=== PATIENT | male | born 1970 | race Caucasian/White ===

== ENCOUNTER → 2019-06-20 15:39 | Outpatient (CLI) | payer OTHER, SELFPAY ==
--- NOTE | ~2019-06-20 | CT_ITS ---
EXAMINATION: CT abdomen pelvis wo/w con DATE: 06/20/2019 16:41 INDICATION: Gross hematuria TECHNIQUE: Computed tomography (CT) of the abdomen and pelvis was performed without and subsequently with 130 cc Omnipaque 350 intravenous contrast. Automated exposure control and iterative reconstructi on technique were employed. Exam dose: 2355.12 mGy-cm total exam DLP. COMPARISON: None. FINDINGS: The lung bases are clear. Normal heart size. Trace pericardial fluid. No pleural effusion. Nonobstructing approximately 4.5 mm upper pole left renal calculus. Approximately 4 mm nonobstructing lower pole right renal calculus. No apparent ureteral calculus is noted but the distal ureters and urinary bladder are partially obscu red by extensive streak artifact from bilateral hip prostheses. No hepatic, splenic, pancreatic, adrenal space-occupying mass lesion is evident. The gallbladder is p resent. No bile duct or pancreatic duct dilatation. There are approximately 7 and 8 mm hypo- or nonenhancing lesions of the mid right kidney laterally an d medially, respectively. There is a 9 x 13 mm hypoenhancing or nonenhancing lesion of the lower right kidney anterolaterally. No left renal space occupying mass lesion is evident. No filling defect of the renal collecting syste ms or ureters is evident. No obvious urinary bladder mass lesion is evident, but as mentioned, there is nonvisualization of a p ortion of the urinary bladder due to the extensive streak artifact from the hip prostheses. Normal caliber of the abdominal aorta. No intraperitoneal or retroperitoneal or pelvic mass lesion or adenopathy or ascites is evident. There is diverticulosis of the left colon; no CT evidence of diverticulitis. Normal appendix. No mickey l obstruction or intraperitoneal free air. 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 IMPRESSION: Several right renal hypo- or nonenhancing lesions are noted measuring up to 9 x 13 mm di mension at these are not completely characterized. Given the history of gross hematuria, consider steven al MRI examination. Minimal bilateral nonobstructive nephrolithiasis Limited evaluation of the urinary bladder Mild diverticulosis of the colon; no evidence of diverticulitis Reviewed, dictated and finalized at [facility]. Reviewed, dictated and finalized at location [facility]. C BUSTER IMPRESSION: Several right renal hypo- or nonenhancing lesions are noted measur ing up to 9 x 13 mm dimension at these are not completely characterized. Given the history of gross hematuria, consider renal MRI examination. Minimal bilateral nonobstructive nephrolithiasis Limited evaluation of the urinary bladder Mild diverticulosis of the colon; no evidence of diverticulitis
--- NOTE | ~2019-06-20 | XR_ITS ---
XR abdomen/kub 1V 06/20/2019 16:41 Indication: Gross hematuria Procedure: KUB Comparison: No prior studies for comparison. Findings: There is a small left renal stone. Bowel gas pattern is nonobstructive. There are bilateral hip arthroplasties. Mild levoscoliosis. No acute osseous abnormality. Impression: 1: Left nephrolithiasis. Reviewed, dictated and finalized at location [facility]. 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
== END ==
PROVIDERS: Visit Provider Urology
DX: R31.0 Gross hematuria (principal); N20.0 Calculus of kidney; K57.30 Diverticulosis of large intestine without perforation or abscess without bleeding
CPT/HCPCS: 74018; 74178; Q9967

== ENCOUNTER → 2019-12-04 09:09 | Outpatient (CLI) | payer OTHER, SELFPAY ==
--- NOTE | ~2019-12-04 | CT_ITS ---
EXAMINATION: CT abdomen wo/w con INDICATION: Right kidney masses TECHNIQUE: Computed tomographic images of the abdomen were obtained after the administration of 100 c c of Omnipaque 350 intravenous contrast. The dose-length product (DLP) was 1707.32 mGy-cm. Automated exposure control and iterative reconstruction technique were employed. COMPARISON: 06/20/2019 FINDINGS: Minimal dependent atelectasis is present in the lung bases. The heart size is normal. The l iver, spleen, pancreas, gallbladder, and adrenal glands are normal. A 1.5 x 1.0 cm lesion of the righ t mid kidney is stable and has attenuation values consistent with a cyst. Additional lesions identifi ed on the comparison CT are no longer identified. The left kidney is unremarkable. There are no patho logically enlarged abdominal lymph nodes. There is no free intraperitoneal gas or evidence of bowel o bstruction. There is moderate lumbar spondylosis. IMPRESSION: 1. Right kidney cyst. Reviewed, dictated and finalized at location [facility]. IMPRESSION: 1. Right kidney cyst.
[2019-12-04 09:41] LABS: Estimated Glomerular Filt Rate > 60
== END ==
PROVIDERS: Visit Provider Urology
DX: N28.1 Cyst of kidney, acquired (principal)
CPT/HCPCS: 36415; 74170; Q9967